=== PATIENT | female | born 2000 | race Caucasian/White ===

== ENCOUNTER 2025-04-27 15:45 | Outpatient (AMB) | payer OTHER, SELFPAY ==
--- NOTE | 2025-04-27 15:53 | A.OFFPC_ITS ---
Vital Signs 04/27/25 15:57 Height 5 ft 3.39 in Weight 237 lb BMI 41.5 BP 121/59 L Respiration 14 Pulse 80 Pulse Source Pulse Oximeter Temp 98.2 F Temp Source Temporal Artery Scan Pulse Oximetry (%) 99 Oxygen Delivery Method Room Air Intake Visit Reasons: establish care Hand Flesher Required: No Accompanied by: Self / Same As Patient Allergies No Known Allergies Allergy (Verified 04/27/25 16:07) Medication List - Last Reconciled 04/27/25 by Angie Westfall PA-C No Known Home Meds Tobacco use date assessed: 04/27/25 Dental Screening Dental Screen Date: 04/27/25 Did you have a dental visit in the last 12 months?: Yes Did you have a dental problem in the last 6 months where you did not have access to dental care?: No Was dental information given to patient?: Patient has dentist HPI establish care HPI Details The patient is a 34-year-old female presenting for establishment of care and routine health maintenance. She has a history of being a carrier of cy stic fibrosis, which has been monitored through blood work and testing of her children. In 2021, the patient underwent an emergency section and subsequently experienced an ectopic , leading to the removal of her right fallopian tube. She also had gestational hypertension during her , which was managed with baby aspirin and has since resolved. The patient reports a history of Attention Deficit Hyperactivity Disorder (ADHD) diagnosed in childhood, which has been managed without medication since elementary school. Recent blood work indicated elevated alkaline phosphatase and ALT levels, as well as anemia and high platelet count, which were noted during a previous emergency room visit. A heart murmur was detected during the physical examination, prompting a recom mendation for an echocardiogram to further evaluate the finding. The patient has a history of an ovarian cyst, which was first identified during a CT scan in the emergency room. Social History - Employment: Works at a daycare, [employer] in [facility] Medical History (Updated 04/27/25 @ 16:41 by Angie Westfall PA-C) Obesity, morbid, BMI 40.0-49.9 Anemia Elevated ALT measurement Elevated alkaline phosphatase level Annual physical exam History of ovarian cyst Heart murmur Establishing care with new doctor, encounter for Obesity, class 2 History of gestational hypertension with history of ectopic History of attention deficit hyperactivity disorder (ADHD) Cystic fibrosis carrier Surgical History History of delivery Family History Mother Thyroid cancer Father Sleep apnea Social History Housing: Apartment Alcohol intake: current Alcohol intake frequency: holidays/special occasions only Patient Tobacco Use Status: Never used Tobacco service: No Current occupational status: employed Cognitive needs: No Hearing needs: No Vision needs: Yes (rx glasses) Questionnaire PHQ-9 Over the last 2 weeks, how often have you been bothered by any of the following problems? 1. Little interest or pleasure in doing things: not at all 2. Feeling down, depressed, or hopeless: not at all 3. Trouble falling or staying asleep, or sleeping too much: not at all 4. Feeling tired or having little energy: not at all 5. Poor appetite or overeating: not at all 6. Feeling bad about yourself - or that you are a failure or have let yourself or your family down: not at all 7. Trouble concentrating on things, such as reading the newspaper or watching television: not at all 8. Moving or speaking so slowly that other people could have noticed. Or the opposite - being so fidgety or restless that you have been moving around a lot more than usual: not at all 9. Thoughts that you would be better off or of hurting yourself in some way: not at all Total score: 0 Depression Screening Interpretation: Negative Depression Screening Done: Yes 61120 - PHQ-9 Billing: Yes Source: Developed by Drs. Cornel Disla, Charmaine Collier, Roni Seay and colleagues, with an educational latasha from [employer] Thrive Questionnaire Date Thrive assessed: 04/27/25 I am a: Patient What is your living situation today?: I have a steady place to live Within the past 12 months, did the food you bought not last and you didn't have the money to get more?: Never true Within the past 12 months, did you worry whether your food would run out before you got money to buy more?: Never true Do you have trouble paying for medicines?: No Do you have trouble getting transportation to medical appointments?: No Do you have trouble paying your heating and electricity bill?: No Do you have trouble taking care of your child, family member or friend?: No Do you have trouble with day-to-day activities such as bathing, preparing meals, shopping, managing finances, etc.?: No Are you currently unemployed and looking for a job?: No Are you interested in more education?: No Please select the resources that you would like help with: None THRIVE Score: 0 AUDIT C Alcohol Use Questionnaire (AUDIT-C) 1. How often do you have a drink containing alcohol?: Monthly or less 2. How many drinks containing alcohol do you have on a typical day when you are drinking?: 1 or 2 3. How often do you have six or more drinks on one occasion?: Never Total Score: 1 Score Reviewed/Action Taken: No ARTHUR-7 AMB Questionnaire ARTHUR-7 Date ARTHUR - 7 assessed: 04/27/25 Feeling nervous, anxious, or on edge: 0 = Not at all Not being able to stop or control worryin = Not at all Worrying too much about different things: 0 = Not at all Trouble relaxin = Not at all Being so restless that it is hard to sit still: 0 = Not at all Becoming easily annoyed or irritable: 0 = Not at all Feeling afraid as if something awful might happen: 0 = Not at all Total ARTHUR-7 score (0-4 normal; 5-9 mild; 10-14 moderate; 15-21 severe): 0 Source: Developed by Drs. Cornel Disla, Charmaine Collier, Roni Seay and colleagues, with an educational latasha from [employer] ARTHUR-7 Assessment Billing ARTHUR-7 Assessment Tool: ARTHUR-7 Assessment 69754 Review of Systems Const Details: - Gastrointestinal: Denies abdominal pain, nausea, vomiting, unintentional weight loss, or changes in stool - Cardiovascular: Denies chest pain, orthopnea, or syncope - Musculoskeletal: Denies leg pain Physical exam (Primary Care) Vital Signs: Last Vital Signs Temp 98.2 F 04/27/25 15:57 Pulse 80 04/27/25 15:57 Resp 14 04/27/25 15:57 BP 121/59 L 04/27/25 15:57 Pulse Ox 99 04/27/25 15:57 Oxygen Delivery Method Room Air 04/27/25 15:57 Care Plan Goal for BP management: <140/90 at Goal BMI result Body Mass Index 41.5 BMI Assessment/Plan discussion: High BMI High, discussed plan: lifestyle, weight reduction, dietary, physical activity and alcohol moderation Tobacco/Smoking Status: Tobacco use Status Tobacco use date assessed 04/27/25 04/27/25 16:02 Patient Tobacco Use Status Never used Tobacco 04/27/25 16:02 PHQ-9: PHQ-9 Score PHQ-9: Total score 0 04/27/25 16:02 Depression Screening Interpretation: Negative Thrive Assessment: Date of Thrive Assessment Date Thrive assessed 04/27/25 04/27/25 16:02 Const Other: Appearance: Alert. Oriented X3. No acute distress. Head: Normal external exam. Normocephalic. Atraumatic. Eyes: Pupils are equal, round, and reactive to light. Extraocular movements intact. Conjunctiva and sclera normal. Eyelids normal. Ears: External auditory canal normal. Tympanic membranes normal. Throat: Pharynx normal. Uvula midline. Moist mucous membranes. Neck: Normal inspection. Neck supple. Full range of motion. No adenopathy. Thyroid Normal. No meningeal signs. No neck mass noted. Cardiovascular: Normal heart rate and rhythm. Heart sound normal. A murmur was noted. Pulses normal throughout. Respiratory: No respiratory distress. Painless inspiration. Breath sounds normal. No wheezes/rales/rhonchi noted. Chest nontender. No accessory muscle usage noted or decreased air movement noted. Abdomen: Soft and nontender. Bowel sounds normal in all 4 quadrants. No distention noted. No organomegaly noted. No visible injury noted. Back: No costovertebral angle tenderness. Full range of motion noted. Skin: Skin warm and dry. Normal skin color. Normal skin turgor. No rashes/lesions/lacerations noted. Extremities: No lower extremity edema. Extremities exhibit normal range of motion. Extremities nontender. Neuro: Oriented X 3. No motor deficit. No sensory deficit. Reflexes normal. Results Reviewed Results Reviewed: - Labs: Elevated alkaline phosphatase (110 U/L) and ALT (104 U/L), anemia, high platelet count Coding Level of Care Code New Pt Level 4 (41793) New Pt Prev Care 18-39yr(90786 Diagnoses Establishing care with new doctor, encounter for Z76.89 Annual physical exam Z00.00 Cystic fibrosis carrier Z14.1 History of attention deficit hyperactivity disorder (ADHD) Z86.59 Elevated alkaline phosphatase level R74.8 Elevated ALT measurement R74.01 Anemia D64.9 History of ovarian cyst Z87.42 Heart murmur R01.1 Obesity, morbid, BMI 40.0-49.9 E66.01 Additional Codes PHQ-9 - 69086 - PHQ-9 Billing: Yes ([id number]) ARTHUR-7 Assessment Billing - ARTHUR-7 Assessment Tool: ARTHUR-7 Assessment 44410 ([id number]) Assessment & Plan Assessment & Plan (1) Establishing care with new doctor, encounter for: Code(s): Z76.89 - Persons encountering health services in other specified circumstances Category: Medical (2) Annual physical exam: Code(s): Z00.00 - Encounter for general adult medical examination without abnormal findings Category: Medical (3) Cystic fibrosis carrier: Code(s): Z14.1 - Cystic fibrosis carrier Category: Medical Plan: The patient is a carrier of cystic fibrosis, with no active management required at this time. Monitoring through blood work and testing of offspring has been conducted. (4) History of attention deficit hyperactivity disorder (ADHD): Comment: Controlled without medications since elementary school Code(s): Z86.59 - Personal history of other mental and behavioral disorders Category: Medical Plan: The patient has a history of ADHD diagnosed in childhood, managed without medication since elementary school. No current treatment is required. (5) Elevated alkaline phosphatase level: Code(s): R74.8 - Abnormal levels of other serum enzymes Category: Medical Plan: The patient has elevated alkaline phosphatase and ALT levels. A recheck of liver function tests is planned to monitor these findings. (6) Elevated ALT measurement: Code(s): R74.01 - Elevation of levels of liver transaminase levels Category: Medical Plan: The patient has elevated alkaline phosphatase and ALT levels. A recheck of liver function tests is planned to monitor these findings. (7) Anemia: Code(s): D64.9 - Anemia, unspecified Category: Medical Plan: The patient has anemia, identified during previous blood work. A complete blood count will be rechecked to assess current status. (8) History of ovarian cyst: Code(s): Z87.42 - Personal history of other diseases of the female genital tract Category: Medical Plan: The patient has a history of an ovarian cyst, first identified during a CT scan. An ultrasound is planned to evaluate the current status of the cyst. (9) Heart murmur: Code(s): R01.1 - Cardiac murmur, unspecified Category: Medical Plan: A heart murmur was detected during the examination. An echocardiogram is recommended to further evaluate this finding. (10) Obesity, morbid, BMI 40.0-49.9: Code(s): E66.01 - Morbid (severe) obesity due to excess calories Category: Medical Plan: Patient to improve diet and exercise regimen. Condition is chronic and stable will continue to monitor. Plan Plan Patient was informed and verbally consented to the use of an ambient scribe for clinic note documentation during this visit. 1. Carrier Of Cystic Fibrosis The patient is a carrier of cystic fibrosis, with no active management required at this time. Monitoring through blood work and testing of offspring has been co nducted. 2. History Of Ectopic With Right Fallopian Tube Removal The patient has a history of ectopic resulting in the removal of the right fallopian tube. No current interventions are necessary. 3. Gestational Hypertension The patient experienced gestational hypertension during , managed with baby aspirin, and has since resolved without further treatment. 4. Attention Deficit Hyperactivity Disorder (Adhd) The patient has a history of ADHD diagnosed in childhood, managed without medication since elementary school. No current treatment is required. 5. Elevated Alkaline Phosphatase And Alt Levels The patient has elevated alkaline phosphatase and ALT levels. A recheck of liver function tests is planned to monitor these findings. 6. Anemia The patient has anemia, identified during previous blood work. A complete blood count will be rechecked to assess current status. 7. History Of Ovarian Cyst The patient has a history of an ovarian cyst, first identified during a CT scan. An ultrasound is planned to evaluate the current status of the cyst. 8. Heart Murmur A heart murmur was detected during the examination. An echocardiogram is recommended to further evaluate this finding. During the visit, we discussed the patient's history of cystic fibrosis carrier status, ectopic , gestational hypertension, and ADHD. We reviewed her recent lab results, noting elevated liver enzymes and anemia. I recommended rechecking her liver function tests and complete blood count. We also discussed the detection of a heart murmur and the plan to conduct an echocardiogram. Additionally, an ultrasound was recommended to evaluate a previously identified ovarian cyst. Follow-up blood work was planned, including CBC, CMP, thyroid function, vitamin levels, and cholesterol screening. The patient was advised to follow up in six months or sooner if any abnormalities are detected. Orders: Orders Complete Blood Count Auto Diff Today Z00.00 - Encounter for general adult medi russell examination without abnormal findings Hemoglobin A1c Today Z00.00 - Encounter for general adult medical examination without abnormal findings C Reactive Protein Today Z00.00 - Encounter for general adult medical examination without abnormal findings Liver Panel Today Z00.00 - Encounter for general adult medical examination without abnormal findings CA echo transthoracic complete Today R01.1 - Cardiac murmur, unspecified Comprehensive Momence. Panel Fast Today Z00.00 - Encounter for general adult medical examination without abnormal findings TSH reflex Free T4 Today Z00.00 - Encounter for general adult medical examination without abnormal findings Lipid Panel Today Z00.00 - Encounter for general adult medical examination without abnormal findings Vitamin B12 and Folate Today Z00.00 - Encounter for general adult medical examination without abnormal findings Magnesium Today Z00.00 - Encounter for general adult medical examination without abnormal findings Vitamin D 25-OH Total Today Z00.00 - Encounter for general adult medical examination without abnormal findings US pelvic complete Today Z87.42 - Personal history of other diseases of the female genital tract Patient Instructions: During the visit, we discussed the patient's history of cystic fibrosis carrier status, ectopic , gestational hypertension, and ADHD. We reviewed her recent lab results, noting elevated liver enzymes and anemia. I recommended rechecking her liver function tests and complete blood count. We also discussed the detection of a heart murmur and the plan to conduct an echocardiogram. Additionally, an ultrasound was recommended to evaluate a previously identified ovarian cyst. Follow-up blood work was planned, including CBC, CMP, thyroid function, vitamin levels, and cholesterol screening. The patient was advised to follow up in six months or sooner if any abnormalities are detected.
[2025-04-27 15:57] VITALS: BP 121/59; PULSE 80; RESP 14; TEMP 36.8; O2SAT 99; BMI 41.5
== END 2025-04-27 16:31 | disposition home or self-care (01) ==
LOC: HO.HMCSH 15:45
PROVIDERS: PCP Internal Medicine; Visit Provider Physician Assistant Medical
DX: Z00.00 Encounter for general adult medical examination without abnormal findings (principal); R01.1 Cardiac murmur, unspecified; E66.01 Morbid (severe) obesity due to excess calories; Z68.41 Body mass index [BMI] 40.0-44.9, adult; R74.8 Abnormal levels of other serum enzymes; R74.01 Elevation of levels of liver transaminase levels; Z76.89 Persons encountering health services in other specified circumstances; Z87.42 Personal history of other diseases of the female genital tract; D64.9 Anemia, unspecified; Z14.1 Cystic fibrosis carrier; Z86.59 Personal history of other mental and behavioral disorders

== ENCOUNTER → 2025-04-27 15:45 | Outpatient (BNVA) | payer OTHER, SELFPAY | PROVIDERS: PCP Internal Medicine; Visit Provider Physician Assistant Medical | DX: Z00.00 Encounter for general adult medical examination without abnormal findings (principal); R01.1 Cardiac murmur, unspecified; R74.8 Abnormal levels of other serum enzymes; R74.01 Elevation of levels of liver transaminase levels; D64.9 Anemia, unspecified; E66.01 Morbid (severe) obesity due to excess calories; Z87.42 Personal history of other diseases of the female genital tract; Z76.89 Persons encountering health services in other specified circumstances; Z86.59 Personal history of other mental and behavioral disorders; Z14.1 Cystic fibrosis carrier | CPT/HCPCS: 96127 ==

== ENCOUNTER 2025-05-02 09:20 | Outpatient (REF) | payer OTHER, SELFPAY ==
[2025-05-02 11:04] LABS: MANUAL DIFF FLAG NO
[2025-05-02 11:16] LABS: Basophils Percent Auto 0.3 % (0-2); Eosinophils Absolute Auto 0.2 X10*3/uL (0.0-0.4); Hemoglobin 10.7 g/dl (12.0-16.0); Imm Gran Abs Auto 0.04 X10*3/uL (0.00-0.03); Imm Gran Pct Auto 0.5 % (0.0-0.4); Lymphocytes Absolute Auto 2.1 X10*3/uL (1.2-4.9); Lymphocytes Percent Auto 24.1 % (20-40); Mean Corpuscular HGB Conc 30.6 g/dl (31.0-35.0); Mean Corpuscular Hemoglobin 23.5 pg (27.0-33.0); Mean Corpuscular Volume 76.8 fL (80.0-98.0); Mean Platelet Volume 9.1 fL (9.4-12.3); Monocytes Absolute Auto 0.6 X10*3/uL (0.1-1.2); Monocytes Percent Auto 6.3 % (2-11); Neutrophils Absolute Auto 5.8 x10*3/uL (2.0-8.3); Neutrophils Percent Auto 66.8 % (45-73); Platelet Count 459 X10*3/uL (160-400); Red Blood Count 4.56 X10*6/uL (4.20-5.50); Red Cell Distribution Width 16.1 % (11.0-16.0); White Blood Count 8.7 X10*3/uL (4.8-10.8)
[2025-05-02 11:25] LABS: Estimated Average Glucose 105 mg/dL; Hemoglobin A1c % 5.3 % (<6.0)
[2025-05-02 11:31] LABS: Alanine Aminotransferase 30 U/L (0-31); Albumin Level 4.7 g/dL (3.5-5.0); Alkaline Phosphatase 94 U/L (39-117); Anion Gap 10 (12-20); Aspartate Amino Transferase 27 U/L (5-31); Bilirubin Direct 0.1 mg/dL (0.0-0.5); Bilirubin Total 0.3 mg/dL (0.0-1.0); Blood Urea Nitrogen 13 mg/dL (9-16); C Reactive Protein 0.87 mg/dL (< or = 0.50); Calcium 9.3 mg/dL (8.4-10.2); Carbon Dioxide 25 mmol/L (22-29); Chloride 107 mmol/L (96-108); Cholesterol 191 mg/dL (<200); Estimated Glomerular Filt Rate > 60; Glucose Fasting 87 mg/dL (60-99); HDL Cholesterol 40 mg/dL (>40); LDL Cholesterol Calculated 126 mg/dL (<100); Magnesium 2.1 mg/dL (1.6-2.6); Potassium 4.3 mmol/L (3.3-5.1); Sodium 138 mmol/L (135-145); Total Protein 8.4 g/dL (6.5-8.0); Triglycerides 128 mg/dL (<150)
[2025-05-02 11:54] LABS: TSH reflex Free T4 2.86 uIU/mL (0.32-4.0); Vitamin D 25-OH Total 17.4 ng/mL (>30)
[2025-05-02 11:56] LABS: Folate 5.5 ng/mL (> or = 4.0); Vitamin B12 369 pg/mL (200-900)
== END 2025-05-02 09:21 | disposition home or self-care (01) ==
LOC: HO.HMGCLDS 09:20
PROVIDERS: PCP Internal Medicine; Visit Provider Physician Assistant Medical
DX: Z00.00 Encounter for general adult medical examination without abnormal findings (principal)
CPT/HCPCS: 36415; 80053; 80061; 80076; 82248; 82306; 82607; 82746; 83036; 83735; 84443; 85025; 86140

== ENCOUNTER 2025-05-11 16:05 | Outpatient (REF) | payer OTHER, SELFPAY ==
[2025-05-11 17:52] LABS: MANUAL DIFF FLAG NO
[2025-05-11 17:57] LABS: Hematocrit 32.6 % (37.0-47.0); Hemoglobin 10.0 g/dl (12.0-16.0); Imm Gran Abs Auto 0.05 X10*3/uL (0.00-0.03); Imm Gran Pct Auto 0.5 % (0.0-0.4); Lymphocytes Absolute Auto 2.6 X10*3/uL (1.2-4.9); Mean Corpuscular HGB Conc 30.7 g/dl (31.0-35.0); Mean Corpuscular Hemoglobin 23.9 pg (27.0-33.0); Mean Corpuscular Volume 77.8 fL (80.0-98.0); NRBC Abs Auto 0.000 X10*3/uL (0.0-0.012); NRBC Pct Auto 0.0 /100WBC (0.0-0.2); Platelet Count 436 X10*3/uL (160-400); Red Blood Count 4.19 X10*6/uL (4.20-5.50); White Blood Count 10.7 X10*3/uL (4.8-10.8)
[2025-05-11 18:13] LABS: Iron 31 mcg/dL (30-160); Percent Iron Saturation 8 % (15-50); Total Iron Binding Capacity 404 mcg/dL (228-428); Unsaturated Iron Binding 373 ug/dL
[2025-05-11 18:26] LABS: Ferritin 10 ng/mL (10-122)
[2025-05-18 12:57] LABS: Hematocrit 33.9 % (35.0-45.0); Hemoglobin 10.3 g/dL (11.7-15.5); MCH 24.2 pg (27.0-33.0); MCV 79.8 fL (80.0-100.0); RBC 4.25 Million/uL (3.80-5.10); RDW 16.3 % (11.0-15.0)
== END 2025-05-11 16:06 | disposition home or self-care (01) ==
LOC: HO.HHCL 16:05
PROVIDERS: PCP Internal Medicine; Visit Provider Physician Assistant Medical
DX: Z00.00 Encounter for general adult medical examination without abnormal findings (principal); D64.9 Anemia, unspecified
CPT/HCPCS: 36415; 82728; 83020; 83540; 85014; 85018; 85025; 85041; 85652; 86140

== ENCOUNTER → 2025-06-04 14:43 | Outpatient (REF) | payer OTHER, SELFPAY ==
--- NOTE | 2025-06-04 14:47 | CA_ITS ---
Transthoracic Echocardiogram Patient (Last, First, Middle): Hannah Carreon A Gender: Female Date of : 2000 Age: 25 Procedure Date: 06/04/2025 Procedure Type: Transthoracic Echocardiogram Location: OP Height: 160. cm Weight: 104.33 kg BSA: 2.05 m2 Heart Rate: 68 bpm BP: 130 / 80 mmHg Student Records Specialist: JENNIE/CASEY Referring MD: Angie Westfall PA-C Heliotherapist: Mc Arnold MD Symptoms: R01.1 - Cardiac murmur, unspecified Study Quality: Fair ECG Rhythm: Sinus Conclusions: - Essentially normal study Findings Left Ventricle Normal left ventricular size, thickness, and systolic function. The visually estimated ejection fraction is between 55-60%. Spectral Doppler is indicative of a normal filling pattern. Right Ventricle Normal right ventricular cavity size and systolic function. Atria Both atria are normal in size. There is lipomatous hypertrophy of the interatrial septum. Interatrial shunt cannot be excluded. Aortic Valve The aortic valve structure and function is likely normal. There is no aortic valve stenosis. There is no aortic valve regurgitation. Mitral Valve Likely normal mitral valve structure and function. There is trace mitral valve regurgitation. There is no mitral valve stenosis. Pulmonic Valve The pulmonic valve is likely normal. Tricuspid Valve Normal tricuspid valve structure. There is trace tricuspid valve regurgitation. The right ventricular systolic pressure is normal. The right ventricular systolic pressure is 22 mmHg. Normal right atrial pressure. There is no evidence of pulmonary hypertension. Great Vessels All visible segments of the aorta are normal in size. The pulmonary artery was not well visualized. Venous The inferior vena cava is normal in size and collapses greater than 50% with inspiration. Pericardium/Pleural There is no evidence of pericardial effusion. Prior Study Comparison No prior study available for comparison. Measurements 2D Linear Measurements IVSd: 0.93 0.6-0.9/0.6-1.0 cm LVIDd: 3.64 3.9-5.3/4.2-5.9 cm LVIDd Index: 1.78 2.4-3.2/2.2-3.1 cm/m2 LVIDs: 2.32 2.0-3.6 cm LVPWd: 0.91 0.7-1.1 cm LA Diam: 3.30 2.7-3.8/3.0-4.0 cm LAIDs Index: 1.61 1.5-2.3 cm/m2 LV Mass: 121.27 67-162/88-224 g LV Mass Index: 59.16 43-95/49-115 g/m2 LVOT Diam: 2.10 3.0+(-)1.3 cm 2D Systolic Function EF 4C: 60.00 >55% EF 2C: 58.70 >55% EF BiP: 58.70 >55% Mitral Valve MV Pk E: 0.90 MV PK A: 0.91 MV Decel Time: 212.00 E/A: 1.00 E'Lateral: 19.00 E'Medial: 10.30 E/E' Med: 8.80 E/E' Lat: 4.80 PHT: 62.00 MVA PHT: 3.55 Decel [place]: 4.27 Aortic Valve AoV Pk Tru: 1.59 AoV Mn Tru: 1.07 AoV VTI: 0.33 AoV Pk Grad: 10.00 Aov Mn Grad: 5.00 VIV Cont.VTI: 2.80 LVOT LVOT Pk Tru: 1.36 LVOT Mn Tru: 0.91 LVOT VTI: 0.27 LVOT Pk Grad: 7.00 LVOT Mn Grad: 4.00 LVOT Diam: 2.10 LVOT Area: 3.46 Diastolic Function MV Pk E: 0.90 MV Pk A: 0.91 E/A: 1.00 E'Medial: 10.30 E/E' Med: 8.80 E' Laterial: 19.00 E/E' Lat: 4.80 Right Ventricle TAPSE (mm): 24.30 TVS' Tru: 13.30 Tricuspid Valve TR Pk Tru: 2.18 TR Pk Grad: 19.00 RA Press: 3.00 RVSP: 22.00 Great Vessels Aorta Sinus of Valsalva: 2.90 2.0-3.5 cm Ao Asc: 2.30 2.1-3.4 cm Ao Arch: 2.60 Pulmonary Valve PV Pk Tru: 1.45 Peak PV Grad: 8.00 Updated in Other Vendor System with Status of Final Mc Arnold MD electronically signed on 06/05/2025 11:14:10 AM with status of Final
== END ==
LOC: HO.CARD 14:43
PROVIDERS: PCP Internal Medicine; Visit Provider Physician Assistant Medical
DX: R01.1 Cardiac murmur, unspecified (principal)
CPT/HCPCS: 93306

== ENCOUNTER → 2025-06-04 14:47 | Outpatient (BNV) | payer OTHER, SELFPAY | PROVIDERS: PCP Internal Medicine; Visit Provider Internal Medicine Cardiovascular Disease | DX: R01.1 Cardiac murmur, unspecified (principal) | CPT/HCPCS: 93306 ==

== ENCOUNTER 2025-07-02 14:10 | Outpatient (REF) | payer OTHER, SELFPAY ==
--- NOTE | ~2025-07-02 | US_ITS ---
EXAMINATION: US PELVIS TRANSABDOMINAL AND TRANSVAGINAL HISTORY: Z87.42 - Personal history of other diseases of the female genital tract COMPARISON: There are no prior studies available for comparison. TECHNIQUE: Transabdominal and endovaginal real-time 2D garcia-scale ultrasound was performed. FINDINGS: Uterus: The uterus is normal in size, measuring 7.3 x 4.2 x 5.0 cm. Myometrium has a normal echotexture. No fibroids are identified. Endometrium: The endometrial stripe measures 4 mm in thickness. Right ovary: The right ovary measures 3.1 x 2.5 x 2.3 cm. The right ovary is normal in size and echotexture. Left ovary: The left ovary measures 3.4 x 2.2 x 2.1 cm. The left ovary is normal in size and echotexture. Pelvic fluid: none. US/US pelvic and transvaginal IMPRESSION: Unremarkable pelvic ultrasound. Electronically signed by: Cornel Soto MD 07/02/2025 03:23 PM EDT
[2025-07-02 16:16] LABS: MANUAL DIFF FLAG NO
[2025-07-02 16:20] LABS: Hematocrit 32.8 % (37.0-47.0); Hemoglobin 10.2 g/dl (12.0-16.0); Imm Gran Abs Auto 0.03 X10*3/uL (0.00-0.03); Imm Gran Pct Auto 0.3 % (0.0-0.4); Lymphocytes Absolute Auto 2.5 X10*3/uL (1.2-4.9); Mean Corpuscular HGB Conc 31.1 g/dl (31.0-35.0); Mean Corpuscular Hemoglobin 24.8 pg (27.0-33.0); Mean Corpuscular Volume 79.6 fL (80.0-98.0); NRBC Abs Auto 0.000 X10*3/uL (0.0-0.012); NRBC Pct Auto 0.0 /100WBC (0.0-0.2); Platelet Count 431 X10*3/uL (160-400); Red Blood Count 4.12 X10*6/uL (4.20-5.50); White Blood Count 10.0 X10*3/uL (4.8-10.8)
== END 2025-07-02 14:11 | disposition home or self-care (01) ==
LOC: HO.HMGCX 14:10
PROVIDERS: PCP Internal Medicine; Visit Provider Physician Assistant Medical
DX: Z00.00 Encounter for general adult medical examination without abnormal findings (principal); Z87.42 Personal history of other diseases of the female genital tract
CPT/HCPCS: 36415; 76830; 76856; 85025

== ENCOUNTER → 2025-07-02 14:16 | Outpatient (BNV) | payer OTHER, SELFPAY | PROVIDERS: PCP Internal Medicine; Visit Provider Radiology Diagnostic Radiology | DX: Z87.42 Personal history of other diseases of the female genital tract (principal) | CPT/HCPCS: 76830; 76856 ==